=== PATIENT | male | born 1945 | race Caucasian/White ===

== ENCOUNTER 2021-07-12 10:05 | Emergency (ER) | payer MEDICARE, SELFPAY ==
--- NOTE | ~2021-07-12 | CT_ITS ---
EXAMINATION: CT abdomen pelvis wo con EXAM DATE: 07/12/2021 11:05 INDICATION: Left-sided flank pain. TECHNIQUE: Spiral CT of the abdomen and pelvis was performed without contrast. Axial, coronal and sag ittal images were reviewed. The dose-length product (DLP) for this examination was 1149.37 mGy-cm. The exposure was tailored according to patient size (auto mA exposure control), and iterative reconst ruction (ASIR) was used as additional dose reduction technique. There is no prior study for comparis on. FINDINGS: Punctate 1 mm calcification in the proximal aspect of the left ureter identified on axial i mage 113, coronal image 75. This is not going to be identifiable on KUB. There is mild left-sided obs tructive nephropathy. There is a left renal cyst or calyceal diverticulum measuring 8 cm with some cu rvilinear calcific density posteriorly. There is mild prostatomegaly. The bladder is undistended at time of imaging. Liver and splenic granulomas. The liver, spleen, adrenal glands and pancreas are ot herwise unremarkable. Gallbladder is unremarkable. No biliary obstruction. There is no retroperito kylah or pelvic lymphadenopathy. Small left inguinal fat-containing hernia. The appendix is normal. The stomach and small bowel are unremarkable. There is expected amount of c olonic stool. No free intraperitoneal gas. The heart is normal in size. There are no pericardial or pleural effusions. Several basilar calcified granulomas. Right iliac crest appearance most cons istent with early Paget's disease. Mild bilateral gynecomastia. IMPRESSION: 1. Punctate, 1 mm left proximal ureteral stone. This is below x-ray threshold for visualization. Mil d left obstructive nephropathy. 2. Sizable left renal cyst versus calyceal diverticulum with curvilinear calcific density dependentl y, could be milk of calcium or calcified septum. 3. Right iliac Paget's disease. 4. Other chronic findings. Reviewed, dictated and finalized at location B. IMPRESSION: 1. Punctate, 1 mm left proximal ureteral stone. This is below x-ray threshold for visualization. Mild left obstructive nephropathy. 2. Sizable left renal cyst versus calyceal diverticulum with curvilinear calci fic density dependently, could be milk of calcium or calcified septum. 3. Right iliac Paget's disease. 4. Other chronic findings.
[2021-07-12 10:07] VITALS: BP 135/73; PULSE 89; RESP 16; TEMP 36.7; O2SAT 97
[2021-07-12 10:24] LABS: Basophils Percent Auto 0.3 % (0.2-1.2); Eosinophils Percent Auto 0.1 % (0-4.4); Hematocrit 37.8 % (42.0-52.0); Hemoglobin 13.2 g/dL (14.0-18.0); Immature Granulocyte Absolute 0.06 K/mm3 (0.00-0.031); Immature Granulocyte Percent A 0.5 % (0-0.5); Lymphocytes Absolute Auto 1.14 K/mm3 (0.9-3.2); Lymphocytes Percent Auto 9.8 % (18.3-44.2); Mean Corpuscular HGB Conc 34.9 g/dl (32-36); Mean Corpuscular Hemoglobin 31.4 pg (26-34); Mean Corpuscular Volume 89.8 fl (80-100); Mean Platelet Volume 11.5 fl (7.4-10.4); Monocytes Absolute Auto 0.3 K/mm3 (0.1-0.6); Monocytes Percent Auto 2.5 % (2.6-8.5); Neutrophils Absolute Auto 10.1 K/mm3 (1.3-6.7); Neutrophils Percent Auto 86.8 % (45.5-73.1); Platelet Count Result 248 k/mm3 (150-375); Red Blood Count 4.21 M/mm3 (4.6-6.20); Red Cell Distribution Width 12.5 % (11.5-14.5); White Blood Count 11.6 K/mm3 (4.5-10.0)
[2021-07-12 10:46] LABS: Alanine Aminotransferase 26 U/L (4-50); Alkaline Phosphatase 55 U/L (38-126); Anion Gap 13 mmol/L (8-16); Aspartate Amino Transferase 35 U/L (17-59); Bilirubin,Total 0.7 mg/dL (0.2-1.3); Blood Urea Nitrogen 21 mg/dL (9-20); Calcium 9.7 mg/dL (8.4-10.2); Carbon Dioxide 20 mmol/L (22-30); Chloride 107 mmol/L (98-107); Estimated CRCL calculation 56 ml/min; Estimated Glomerular Filt Rate > 60; Glucose 161 mg/dL (65-110); Lipase 127 U/L (23-300); Potassium 4.8 mmol/L (3.4-5.0); Sodium 140 mmol/L (137-145)
[2021-07-12 10:52] LABS: Add Urine Microscopic? YES; Appearance Urine Clear (Clear); Bilirubin Urine Negative (Negative); Blood Urine 3+ (Negative); Color Urine Yellow (Yellow); Glucose Urine UA Negative (Negative); Ketones Urine Negative (Negative); Leukocyte Esterase Ur Negative LEU/UL (Negative); Mucus Urine Rare /lpf; Nitrate Urine Negative (Negative); Protein Urine 2+ mg/dL (Negative); Specific Grav Ur 1.027 (1.001-1.035); Squamous Epithelial Cell Urine Rare /hpf (Few); Urobilinogen Urine Negative mg/dL (<2.0)
[2021-07-12] MEDS: ONDANSETRON INJ 4 MG/2 ML VIAL IV PUSH (11:30)
[2021-07-12] MEDS: SODIUM CHLORIDE 0.9% IV 1,000 ML 999 ML IV CONT (11:30)
[2021-07-12] MEDS: FAMOTIDINE 20 MG/2 ML VIAL IV PUSH (11:31)
[2021-07-12] MEDS: MORPHINE SULFATE (*CRX) 4 MG/ML INJ IV PUSH (11:33)
--- NOTE | 2021-07-12 11:33 | ED.GENADULT ---
HPI - General Adult General Chief complaint: Abdominal Pain <DRAKE Steele Last Filed: 07/12/21 13:09> Stated complaint: abd pain <DRAKE Steele Last Filed: 07/12/21 13:09> Time Seen by Provider: 07/12/21 10:41 <DRAKE Steele Last Filed: 07/12/21 13:09> Source: patient and RN notes reviewed <DRAKE Steele Last Filed: 07/12/21 13:09> Mode of arrival: ambulatory <DRAKE Steele Last Filed: 07/12/21 13:09> Limitations: no limitations <DRAKE Steele Last Filed: 07/12/21 13:09> History of Present Illness HPI narrative: Patient is a 75-year-old male who presents to emergency department for evaluation of acute onset of flank pain that began last night causing nausea and emesis noting sharp stabbing pain localized to the left lower abdomen denies similar occurrence in the past has not taken anything other than enema without improvement presents nondistressed appears uncomfortable denies similar occurrence in the <DRAKE Steele Last Filed: 07/12/21 13:09> Related Data Home medications: Home Medications Medication Instructions Recorded Confirmed albuterol sulfate 2.5 mg INHALATION Q4-6H PRN 09/10/19 01/16/21 carboxymethylcellulose 0.5 1 drop EACH EYE BID 09/10/19 01/16/21 %-glycerin 0.9 % eye drops lancets #50 each 09/10/19 01/16/21 <DRAKE Steele Last Filed: 07/12/21 13:09> Allergies/adverse reactions: Allergies Allergy/AdvReac Type Severity Reaction Status Date / Time sulfamethizole Allergy Unknown unknown Verified 01/16/21 09:29 tiotropium Allergy Unknown unknown Verified 01/16/21 09:29 trimethoprim Allergy Unknown unknown Verified 01/16/21 09:29 statins AdvReac Intermediate chest/muscle Uncoded 01/16/21 09:29 pain <DRAKE Steele Last Filed: 07/12/21 13:09> Review of Systems Review of Systems: All systems reviewed & are unremarkable except as noted in HPI and below <Luisito Chandler PA-C - Last Filed: 07/12/21 13:09> [facility] Past Medical History Medical History: Medical History (Updated 07/12/21 @ 13:07 by Luisito Chandler PA-C) Asthma Chronic hypertension Gout Mixed hyperlipidemia Type 2 diabetes mellitus without complications <Luisito Chandler PA-C - Last Filed: 07/12/21 13:09> Family History Family History: Family History Mother Family history of seizure disorder, Onset Age: 73 <Luisito Chandler PA-C - Last Filed: 07/12/21 13:09> Social History Social History: Social History Social History: Smoking packs per day: 1 Smoking cigarettes per day: 20.0 Years smoked: 20 Smoking pack-years: 20.00 Smoking status: Former smoker Tobacco type: cigarettes Second hand tobacco smoke exposure: No Smoking end date: 10/21/71 Alcohol intake: never Substance use: never Substance use type: does not use Gender identity (if verbalized by the patient): Male Sexual Orientation (if Verbalized by the Patient): Straight or Heterosexual <Luisito Chandler PA-C - Last Filed: 07/12/21 13:09> Exam Narrative: GENERAL: Well-appearing, well-nourished, uncomfortable and in no acute distress. HEAD: Normocephalic, atraumatic. EYES: PERRLA and EOMI. ENT: Nares clear, no rhinorrhea or epistaxis. Mucous membranes moist. NECK: Supple. No adenopathy or masses. No carotid bruits or JVD CHEST: Clear to auscultation. No respiratory distress. No wheezes rales or rhonchi HEART: Regular rate and rhythm. No murmur heard. Normal peripheral pulses. ABDOMEN: Soft, left lower abdominal tenderness to palpation, nondistended, normal active bowel sounds. EXTREMITIES: Normal range of motion. No edema. SKIN: Warm, dry, no rash. NEURO: No focal deficits. Alert and oriented x3. PSYCH: Normal mood and affect. <Luisito Carl
[2021-07-12] MEDS: KETOROLAC 30 MG/ML VIAL (*BKC) IV PUSH (12:20)
[2021-07-12 13:15] VITALS: BP 115/64; PULSE 80; RESP 16; O2SAT 98
== END 2021-07-12 13:15 | disposition home or self-care (01) ==
PROVIDERS: Emergency Provider General Practice; PCP Family Medicine
DX: N13.8 Other obstructive and reflux uropathy (principal); N20.1 Calculus of ureter; J45.909 Unspecified asthma, uncomplicated; I10 Essential (primary) hypertension; E78.2 Mixed hyperlipidemia; E11.9 Type 2 diabetes mellitus without complications; M10.9 Gout, unspecified; Z87.891 Personal history of nicotine dependence; Z79.84 Long term (current) use of oral hypoglycemic drugs; M88.851 Osteitis deformans of right thigh; R93.422 Abnormal radiologic findings on diagnostic imaging of left kidney
CPT/HCPCS: 36415; 74176; 80053; 81001; 83690; 85025; 96361; 96374; 96375; 99284; J1885; J2270; J2405; J7030

== ENCOUNTER 2023-10-03 11:37 | Outpatient (CLI) | payer MEDICARE, SELFPAY ==
--- NOTE | ~2023-10-03 | XR_ITS ---
AP view of the pelvis and AP and lateral views of the right hip Clinical history: Pain Findings: No acute fracture or dislocation is seen. Osseous alignment is anatomic. Bilateral hip and SI joint spaces are preserved. Soft tissues are unremarkable. Impression: No significant abnormality is seen. Reviewed, dictated and finalized at [facility]. [employer] Impression: No significant abnormality is seen.
== END 2023-10-03 11:38 | disposition home or self-care (01) ==
PROVIDERS: PCP Family Medicine; Visit Provider Family Medicine
DX: M16.11 Unilateral primary osteoarthritis, right hip (principal)
CPT/HCPCS: 73502